=== PATIENT | female | born 1950 | race Caucasian/White ===

== ENCOUNTER → 2017-03-11 | Outpatient (CLI) | payer MEDICARE, BC ==
--- NOTE | 2017-03-11 16:01 | RADRPT ---
PROCEDURE: XR Hip, Bilateral. CLINICAL INDICATION: Pain. TECHNIQUE: Right and left hip x-rays, 5 views including single frontal view the pelvis. COMPARISON: None. FINDINGS: Right hip: Bone density appears normal. Bony cortices are intact. Femoral head and neck contour is smooth and intact. Very mild joint space narrowing is observed. Surgical clips are seen within th e pelvis. Left hip: Bone density appears normal. Bony cortices are intact. Femoral head and neck contour is smooth and intact. Very mild joint space narrowing is observed. Surgical clips are seen within the p [place].. IMPRESSION: Very mild bilateral joint space narrowing. Otherwise, unremarkable bilateral hip x-rays. RPTAT: [facility] .Leonarda Cortez MD, MD Date Time Electronically viewed and signed by .Leonarda Cortez MD, on 03/11/2017 16:01 .T/
--- NOTE | 2017-03-11 16:05 | RADRPT ---
PROCEDURE: XR Knee. CLINICAL INDICATION: Pain. TECHNIQUE: AP, lateral, tunnel and sunrise views of the right and left knees were obtained. COMPARISON: None. FINDINGS: Right knee: Bone density appears normal. Bony cortices are intact. Mild medial compartment joint space narrowing is observed. Joint space narrowing of the lateral patellofemoral compartment is also observed. Tiny osteophytes of the tibial spines are present. Soft tissues are unremarkable. There is no evidence of large joint effusion. Left knee: Bone density appears normal. Bony cortices are intact. Mild medial compartment joint sp terence narrowing is observed. Joint space narrowing of the lateral patellofemoral compartment is also o bserved. Tiny osteophytes of the tibial spines are present. Soft tissues are unremarkable. There is no evidence of large joint effusion. 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 RPTAT: [facility] .Leonarda Cortez MD, Date Time Electronically viewed and signed by .Leonarda Cortez MD, MD on 03/11/2017 16:04 .T/
== END | disposition home or self-care (01) ==
LOC: HKI 15:26
PROVIDERS: ATTEND Orthopaedic Surgery
DX: M25.561 Pain in right knee (principal); M25.562 Pain in left knee; M22.42 Chondromalacia patellae, left knee; M22.41 Chondromalacia patellae, right knee
CPT/HCPCS: 73523; 73564; G0463